=== PATIENT | male | born 1975 | race Two or more races ===

== ENCOUNTER 2016-05-13 03:34 | Emergency (ER) | payer BC ==
--- NOTE | 2016-05-18 13:18 | ER ---
ADMIT: 05/13/2016 RM/LOC: ER [facility] MR#: [id number] [place], [place] [id number] YOHANA SAUCEDO [address] [place] [address] Emergency Room Report SEX: M AGE: 41 : 1975 DATE: 05/13/2016 The patient is a 41-year-old male, came here with chief complaint of left shoulder pain. Allegedly before coming to the hospital, the patient fell from the ladder and did not let go the hand and felt a pop in the left shoulder. The patient after that felt severe pain in left shoulder and could not do range of motion of the left shoulder because of the severe pain. In the ER, patient was in [id number] pain, holding the left arm and left forearm immobilized next to the body and splinting it with the other hand. The patient denies any other trauma to the body and any head trauma or loss of consciousness. Neurovascular exam was normal. I did not see any obvious abnormality in the left shoulder grossly. X-ray showed partial overlapping of the humerus head and glenoid fossa in the Y-view . After giving the patient IM morphine IV and using Huber technique with manipulation, I ranged the left shoulder. Repeat Y-view looks normal. I did not see any obvious fractures. The patient can do range of motion of the shoulder on the left side with moderate pain actively. The patient was put on a sling, was discharged to work, which he used and do range of motion technique to prevent frozen shoulder. Follow up with the primary as needed. Dean Emerson MD/ ivelisse JOB #: [id number] CC: Dean Emerson MD, Attending Physician Padmini Araiza MD, Family Physician
== END 2016-05-13 05:25 | disposition home or self-care (01) ==
LOC: ER 03:34
PROC: 2W39X1Z Immobilization of Left Upper Extremity using Splint (ICD-10-PCS; principal; 2016-05-13)
DX: M25.512 Pain in left shoulder (principal)